=== PATIENT | male | born 1980 | race Caucasian/White ===

== ENCOUNTER 2025-01-08 11:55 | Emergency (ER) | payer OTHER ==
[~2025-01-08] VITALS: Ht 175.3 cm; Wt 86.7 kg
[2025-01-08] MEDS ORDERED: AMOX TR-K CLV1 EAC1 PO (13:07)
[2025-01-08] MEDS ORDERED: AMOXICILLIN/CLAVULANATE K 875 MG TAB PO ONE (13:15)
[2025-01-08 13:33] VITALS: BP 173/107
== END 2025-01-08 13:34 | disposition home or self-care (01) ==
LOC: ED 11:55
DX: J18.9 Pneumonia, unspecified organism (principal); Z91.030 Bee allergy status; Z88.5 Allergy status to narcotic agent
CPT/HCPCS: 71045; 99284-25